=== PATIENT | male | born 1965 | race American Indian/Alaskan Native ===

== ENCOUNTER 2017-02-07 13:44 | Emergency (ER) | payer MEDICARE, MEDICAID ==
--- NOTE | 2017-02-07 14:49 | EDM.PDOC ---
ED HPI GENERAL MEDICAL PROBLEM - General Chief Complaint: Upper Extremity Injury/Pain Stated Complaint: RIGHT SHOULDER AND NECK PAIN Time Seen by Provider: 02/07/17 14:48 Source of Information: Reports: Patient - History of Present Illness INITIAL COMMENTS - FREE TEXT/NARRATIVE: HISTORY AND PHYSICAL: History of present illness: Patient presents with right shoulder elbow and wrist pain after slip and fall on the ice last week initially there is no pain over several days began to her today presents with 6 out of 10 pain neck and reproduce pain with movement of the shoulder girdle is clear muscle spasm over the entire right trapezius distribution deltoid tricep bicep forearm no compartment syndrome no pallor good capillary refill under 3 seconds neurovascularly intact Review of systems: As per history of present illness and below otherwise all systems reviewed and negative. Past medical history: As per history of present illness and as reviewed below otherwise noncontributory. Surgical history: As per history of present illness and as reviewed below otherwise noncontributory. Social history: No reported history of drug or alcohol abuse. Family history: As per history of present illness and as reviewed below otherwise noncontributory. Physical exam: HEENT: Atraumatic, normocephalic, pupils reactive, negative for conjunctival pallor or scleral icterus, mucous membranes moist, throat clear, neck supple, nontender, trachea midline. Lungs: Clear to auscultation, breath sounds equal bilaterally, chest nontender. Heart: S1S2, regular, negative for clicks, rubs, or JVD. Abdomen: Soft, nondistended, nontender. Negative for masses or hepatosplenomegaly. Negative for costovertebral tenderness. Pelvis: Stable nontender. Genitourinary: Deferred. Rectal: Deferred. Extremities: Atraumatic, negative for cords or calf pain. Neurovascular unremarkable. Neuro: Awake, alert, oriented. Cranial nerves II through XII unremarkable. Cerebellum unremarkable. Motor and sensory unremarkable throughout. Exam nonfocal. Diagnostics: []Right shoulder complete Elbow complete Right wrist 3 views Therapeutics: []Toradol 60 IM Toradol Flexeril Impression: []Right shoulder and elbow pain/contusion Muscle spasm right shoulder girdle Definitive disposition and diagnosis as appropriate pending reevaluation and review of above. Right Elbow Pain Score (Numeric/FACES): 9 - Related Data Allergies Allergy/AdvReac Type Severity Reaction Status Date / Time No Known Allergies Allergy Verified 02/07/17 14:36 Home Meds: Home Meds Hydrochlorothiazide 25 mg PO DAILY 02/07/17 [History] Lisinopril 10 mg PO DAILY 02/07/17 [History] Metoprolol Tartrate [Lopressor] 25 mg PO DAILY 02/07/17 [History] Past Medical History HEENT History: Reports: None Cardiovascular History: Reports: Hypertension Respiratory History: Reports: None Genitourinary History: Reports: None Neurological History: Reports: None Psychiatric History: Reports: None Endocrine/Metabolic History: Reports: None Hematologic History: Reports: None Immunologic History: Reports: None Oncologic (Cancer) History: Reports: None Dermatologic History: Reports: None - Infectious Disease History Infectious Disease History: Reports: None - Past Surgical History Head Surgeries/Procedures: Reports: None GI Surgical History: Reports: Cholecystectomy Male Surgical History: Reports: None Neurological Surgical History: Reports: None Musculoskeletal Surgical History: Reports: Shoulder Surgery Other Musculoskeletal Surgeries/Procedures:: left shoulder 3 years ago Social & Family History - Tobacco Use Smoking Status *Q: Never Smoker Second Hand Smoke Exposure: No - Caffeine Use Caffeine Use: Reports: None - Recreational Drug Use Recreational Drug Use: No Review of Systems - Review of Systems Review Of Systems: ROS reveals no pertinent complaints other than HPI. ED EXAM, GENERAL - Physical Exam Exam: See Below Course - Vital Signs Last Recorded V/S: Last Vital Signs Temp 98.7 F 02/07/17 14:33 Pulse 84 02/07/17 14:33 Resp 20 02/07/17 14:33 BP 141/91 H 02/07/17 14:33 Pulse Ox 98 02/07/17 14:33 - Orders/Labs/Meds Orders: Active Orders 24 hr Category Date Time Status Elbow Min 3V Rt [CR] Stat Exams 02/07/17 14:48 Taken Shoulder Comp Rt [CR] Stat Exams 02/07/17 14:48 Taken Wrist Comp Min 3V Rt [CR] Stat Exams 02/07/17 14:55 Taken Ketorolac [Toradol] Med 02/07/17 15:43 Once 60 mg IM ONETIME ONE Medication Orders Ketorolac Tromethamine (Toradol) 60 mg IM ONETIME ONE Stop: 02/07/17 15:44 Meds: Medications Generic Name Dose Route Start Last Admin Trade Name Freq PRN Reason Stop Dose Admin Ketorolac Tromethamine 60 mg 02/07/17 15:43 Toradol IM 02/07/17 15:44 ONETIME ONE Departure - Departure Time of Disposition: 15:45 Disposition: Home, Self-Care 01 Condition: Good Clinical Impression: Muscle spasm - Discharge Information Referrals: PCP,None [Primary Care Provider] - Forms: ED Department Discharge Additional Instructions: Medication as prescribed Return if symptoms persist or worsen Follow-up with primary care in 2 weeks sooner as needed The following information is given to patients seen in the emergency department who are being discharged to home. This information is to outline your options for follow-up care. We provide all patients seen in our emergency department with a follow-up referral. The need for follow-up, as well as the timing and circumstances, are variable depending upon the specifics of your emergency department visit. If you don't have a primary care physician on staff, we will provide you with a referral. We always advise you to contact your personal physician following an emergency department visit to inform them of the circumstance of the visit and for follow-up with them and/or the need for any referrals to a consulting specialist. The emergency department will also refer you to a specialist when appropriate. This referral assures that you have the opportunity for follow-up care with a specialist. All of these measure are taken in an effort to provide you with optimal care, which includes your follow-up. Under all circumstances we always encourage you to contact your private physician who remains a resource for coordinating your care. When calling for follow-up care, please make the office aware that this follow-up is from your recent emergency room visit. If for any reason you are refused follow-up, please contact the [facility] emergency department at and asked to speak to the emergency department charge nurse. - My Orders Last 24 Hours: My Active Orders 02/07/17 14:48 Elbow Min 3V Rt [CR] Stat Shoulder Comp Rt [CR] Stat 02/07/17 14:55 Wrist Comp Min 3V Rt [CR] Stat 02/07/17 15:43 Ketorolac [Toradol] 60 mg IM ONETIME ONE - Assessment/Plan Last 24 Hours: My Active Orders 02/07/17 14:48 Elbow Min 3V Rt [CR] Stat Shoulder Comp Rt [CR] Stat 02/07/17 14:55 Wrist Comp Min 3V Rt [CR] Stat 02/07/17 15:43 Ketorolac [Toradol] 60 mg IM ONETIME ONE
[2017-02-07] MEDS ORDERED: Ketorolac 60 MG/2 ML SDV IM ONE (15:43)
--- NOTE | 2017-02-09 05:50 | CR ---
EXAM DATE: 02/07/17 PATIENT'S AGE: 51 Patient: ALISSA DE LA PAZ Facility: [place], [place] Site . Site : 1965 Study: XRay Extremity Right Wrist [id number]/24/2017 3:21:01 PM Ordering Physician: Kana Montiel Final Report: INDICATION: Pain. Fall 1 week ago. Technique: Three views of the right wrist. Findings: No acute or healing fracture. Joint spaces are maintained. Soft tissues are unremarkable. Impression: Negative right wrist. Dictated by Coty Saha MD @ Feb 07 2017 3:22PM (Electronic Signature) Report Signed by Proxy. LEO
--- NOTE | 2017-02-09 05:51 | CR ---
EXAM DATE: 02/07/17 PATIENT'S AGE: 51 Patient: ALISSA DE LA PAZ Facility: [place], [place] Site . Site : 1965 Study: XRay Extremity Right Elbow [id number]/24/2017 3:21:40 PM Ordering Physician: Kana Montiel Final Report: INDICATION: Pain. Fall 1 week ago. Technique: Three views of the right elbow. Findings: No acute or healing fracture or dislocation or other bony abnormality. No joint effusion. Impression: Negative right elbow. Dictated by Coty Saha MD @ Feb 07 2017 3:24PM (Electronic Signature) Report Signed by Proxy. LEO
--- NOTE | 2017-02-09 05:52 | CR ---
EXAM DATE: 02/07/17 PATIENT'S AGE: 51 Patient: ALISSA DE LA PAZ Facility: [place], [place] Site . Site : 1965 Study: XRay Shoulder Right [id number]/24/2017 3:22:22 PM Ordering Physician: Kana Montiel Final Report: INDICATION: Pain. Fall 1 week ago. Technique: Three views of the right shoulder. Findings: No acute or healing fracture or dislocation. Joint spaces are maintained. Small osteophytes about the acromioclavicular joint. Impression: No acute abnormality of the right shoulder. Arthritic change in the acromioclavicular joint. Dictated by Coty Saha MD @ Feb 07 2017 3:25PM (Electronic Signature) Report Signed by Proxy. LEO
== END 2017-02-07 16:06 | disposition home or self-care (01) ==
LOC: MW.ED 13:44
DX: S40.011A Contusion of right shoulder, initial encounter (principal); S50.01XA Contusion of right elbow, initial encounter; I10 Essential (primary) hypertension; Z98.890 Other specified postprocedural states; Z79.899 Other long term (current) drug therapy; W00.0XXA Fall on same level due to ice and snow, initial encounter
CPT/HCPCS: 73030; 73080; 73110; 99283; J1885; 99284